=== PATIENT | female | born 1995 | race Caucasian/White ===

== ENCOUNTER 2021-01-13 21:41 | Emergency (ER) | payer OTHER, MEDICAID ==
[~2021-01-13] VITALS: Ht 157.5 cm; Wt 61.2 kg
[~2021-01-13 21:41] MED LIST: CEPHALEXIN 500500 M3 PO; IBUPROFEN 800800 M1 PO; NOHOMEMEDICATIONS
[2021-01-13 22:54] VITALS: BP 125/70
== END 2021-01-13 22:54 | disposition home or self-care (01) ==
LOC: M.ERS 21:41
DX: S80.912A Unspecified superficial injury of left knee, initial encounter (principal); W01.0XXA Fall on same level from slipping, tripping and stumbling without subsequent striking against object, initial encounter; Y93.89 Activity, other specified; Y92.89 Other specified places as the place of occurrence of the external cause; Y99.8 Other external cause status